=== PATIENT | female | born 1930 | race Hispanic/Latino ===

== ENCOUNTER 2018-10-14 02:06 | Inpatient (IN) | payer MEDICARE | END 2018-10-17 15:36 | LOC: EDH 02:06 → EDHIP 08:32 → 3AH 16:39 | DX: S01.01XA Laceration without foreign body of scalp, initial encounter (principal); K92.2 Gastrointestinal hemorrhage, unspecified; L03.115 Cellulitis of right lower limb; S09.90XA Unspecified injury of head, initial encounter; W19.XXXA Unspecified fall, initial encounter; Z91.81 History of falling; D64.9 Anemia, unspecified; F02.80 Dementia in other diseases classified elsewhere, unspecified severity, without behavioral disturbance, psychotic disturbance, mood disturbance, and anxiety; G30.9 Alzheimer's disease, unspecified ==

== ENCOUNTER 2018-10-22 17:20 | Inpatient (IN) | payer MEDICARE ==
[~2018-10-22] VITALS: Ht 149.9 cm; Wt 43.5 kg
[~2018-10-22 17:20] MED LIST: ACET-66 PO; ACET325T51 PO; AMLO5TAB5 PO; BACL20TA PO; CEFX2I IM; DONE5TAB33 PO; FLUT16H NASAL; FURO20TA6 PO; LEVO150T11 PO; LORA10TA7 PO; MEMA21CA PO; OSCAL PO; SILV45GE TP; SULF1TAB42 PO; VITAMIN PO
[2018-10-22 17:49] LABS: BASOPHILS % (AUTO) 0.2 % (0.0-5.0); EOSINOPHILS % (AUTO) 0.7 % (0.0-8.0); HEMATOCRIT 29.5 % (36-48); LYMPHOCYTES % (AUTO) 8.2 % (21.0-51.0); MEAN CORPUSCULAR HGB CONC 31.4 g/dL (32.0-36.0); MONOCYTES % (AUTO) 9.1 % (3.0-13.0); NEUTROPHILS % (AUTO) 81.8 % (40.0-77.0); PLATELET COUNT (AUTO) 338 K/uL (130-400); RED BLOOD CELL COUNT(AUTO) 3.32 MIL/uL (4.00-5.50); WHITE BLOOD COUNT (AUTO) 12.7 K/uL (4.8-10.8)
[2018-10-22 18:03] LABS: ALBUMIN 2.6 g/dL (3.5-5.0); BILIRUBIN,TOTAL 0.4 mg/dL (0.2-1.0); CREATININE 1.2 mg/dL (0.5-1.5)
[2018-10-22 18:19] LABS: POTASSIUM 2.8 mmol/L (3.5-5.1)
[2018-10-22 18:48] LABS: APPEARANCE,URINE Clear (CLEAR); BILIRUBIN,URINE Negative (NEGATIVE); COLOR,URINE Yellow (YELLOW); GLUCOSE, URINE (UA) Negative (NEGATIVE); KETONES,URINE Negative (NEGATIVE); LEUKOCYTE ESTERASE ,URINE Trace (NEGATIVE); NITRATE,URINE Negative (NEGATIVE); OCCULT BLOOD,URINE Trace (NEGATIVE); PROTEIN,URINE Negative (NEGATIVE); UROBILINOGEN,URINE 0.2 mg/dL (0.2-1.0)
[2018-10-22 19:23] LABS: BACTERIA,URINE Rare /HPF (None Seen)
[2018-10-22] MEDS ORDERED: MEROPENEM 1 GM VIAL ONE (21:59)
[2018-10-22] MEDS ORDERED: POTASSIUM CHLORIDE 20MEQ/100ML 100 ML IV ONE (23:31)
[2018-10-23] MEDS ORDERED: POTASSIUM CHLORIDE 20MEQ/100ML 100 ML IV ONE (04:05)
[2018-10-23] MEDS ORDERED: MEROPENEM 1 GM VIAL ONE ×2 (06:10→16:37)
[2018-10-23 06:20] LABS: BASOPHILS % (AUTO) 0.5 % (0.0-5.0); EOSINOPHILS % (AUTO) 3.6 % (0.0-8.0); HEMATOCRIT 26.7 % (36-48); MEAN CORPUSCULAR HEMOGLOBIN 28.2 pg (27.0-33.0); MEAN CORPUSCULAR HGB CONC 31.7 g/dL (32.0-36.0); MEAN CORPUSCULAR VOLUME 88.9 fL (79-99); MONOCYTES % (AUTO) 8.1 % (3.0-13.0); NEUTROPHILS % (AUTO) 73.8 % (40.0-77.0); PLATELET COUNT (AUTO) 338 K/uL (130-400); RED BLOOD CELL COUNT(AUTO) 3.01 MIL/uL (4.00-5.50); RED CELL DISTRIBUTION WIDTH 15.1 % (11.0-15.5); WHITE BLOOD COUNT (AUTO) 10.8 K/uL (4.8-10.8)
[2018-10-23 06:27] LABS: CREATININE 0.7 mg/dL (0.5-1.5); POTASSIUM 3.3 mmol/L (3.5-5.1)
[2018-10-23 06:35] LABS: AMPHET/METH SCREEN,URINE NEGATIVE (NEGATIVE); BARBITURATE SCREEN, URINE NEGATIVE (NEGATIVE); BENZODIAZEPINES SCREEN,URINE NEGATIVE (NEGATIVE); CANNABINOID SCREEN,URINE NEGATIVE (NEGATIVE); COCAINE SCREEN,URINE NEGATIVE (NEGATIVE); OPIATE SCREEN,URINE NEGATIVE (NEGATIVE); PHENCYCLIDINE SCREEN,URINE NEGATIVE (NEGATIVE)
[2018-10-23] MEDS ORDERED: POTASSIUM CHLORIDE 20 MEQ ERTAB PO ONE (09:36)
[2018-10-23] MEDS ORDERED: LACTULOSE 20 GM/30 ML UDCUP PO PRN (11:15)
[2018-10-23] MEDS ORDERED: ACETAMINOPHEN 325 MG TAB PO PRN ×2 (11:15→18:30)
[2018-10-23] MEDS ORDERED: DOCUSATE SODIUM 100 MG CAP PO PRN (11:15)
[2018-10-23] MEDS ORDERED: ACETAMINOPHEN 325 MG TAB ONE (14:54)
[2018-10-23 17:30] VITALS: BP 143/50
--- NOTE | 2018-10-23 17:30 | NUR ---
RECEIVED PT. FROM ED VIA STRETCHER. AAO TO NAME ONLY. REORIENTED TO PLACE, TIME AND SITUATION. DENIES ANY PAIN AT PRESENT TIME. DENIES ANY SOB. GUARDING RIGHT ARM/SHOULDER. COMPLETE ASSESSMENT DONE. CALL LIGHT WITHIN REACH. BED LOW, SIDE RAILS UP X3. ROOM DOOR OPEN, BLINDS OPEN, VISIBLE FROM NURSE'S STATION. Addendum: 10/23/18 at 1944 by SANDER SUÁREZ RN RN NO FAMILY MEMBERS ACCOMPANYING PT. UNABLE TO COMPLETE ADMISSION DATABASE.
--- NOTE | 2018-10-23 18:15 | NUR ---
RESTING IN BED WITH HOB AT 30 DEGREES, RESP.'S EVEN AND UNLABORED. DENIES ANY C/O CALL LIGHT WITHIN REACH.
[2018-10-23] MEDS: SODIUM CHLORIDE 0.9% 1000ML 1,000 ML IV SCH (18:30)
[2018-10-23] MEDS ORDERED: ZOLPIDEM TARTRATE 5 MG TAB PO PRN (18:30)
[2018-10-23] MEDS ORDERED: POTASSIUM CHLORIDE 20 MEQ ERTAB PO PRN (18:30)
[2018-10-23] MEDS ORDERED: GUAIFENESIN-DM 200/20 MG 10 ML PO PRN (18:30)
[2018-10-23] MEDS ORDERED: CLONIDINE HCL 0.1 MG TABLET PO PRN (18:30)
[2018-10-23] MEDS ORDERED: MAG HYDROX/AL HYDROX/SIMETH ES 30 ML SUSP UDCUP PO PRN (18:30)
[2018-10-23] MEDS ORDERED: NITROGLYCERIN 0.4 MG SL TAB SL PRN (18:30)
[2018-10-23] MEDS ORDERED: POTASSIUM CHLORIDE 10% ELIXIR 20 MEQ/15 ML UDCUP PO PRN (18:30)
[2018-10-23] MEDS ORDERED: ONDANSETRON HCL 4 MG/2 ML VIAL IVP PRN (18:30)
[2018-10-23] MEDS ORDERED: DiphenhydrAMINE HCL 50 MG/ML VIAL IVP PRN (18:30)
[2018-10-23] MEDS ORDERED: SODIUM CHLORIDE 0.9% 10 ML VIAL IVP PRN (18:30)
--- NOTE | 2018-10-23 18:30 | NUR ---
PCP PROVIDED PT. WITH DINNER SANDWICH TRAY.
[2018-10-23 19:23] VITALS: BP 132/59
[2018-10-23] MEDS: INSULIN R PO SSI SQ SCH (21:00)
[2018-10-23] MEDS: ACETAMINOPHEN 325 MG TAB PO PRN (21:56)
[2018-10-23] MEDS: DIPHENHYDRAMINE HCL 25 MG CAPSULE PO PRN (21:56)
[2018-10-23 23:29] VITALS: BP 111/62
[2018-10-24] MEDS: MEROPENEM 1 GM VIAL IVP SCH ×4 (01:19→23:30)
[2018-10-24 03:54] LABS: HEMATOCRIT 23.8 % (36-48); MEAN CORPUSCULAR HEMOGLOBIN 28.5 pg (27.0-33.0); MEAN CORPUSCULAR HGB CONC 32.6 g/dL (32.0-36.0); MEAN CORPUSCULAR VOLUME 87.7 fL (79-99); PLATELET COUNT (AUTO) 319 K/uL (130-400); RED BLOOD CELL COUNT(AUTO) 2.71 MIL/uL (4.00-5.50); RED CELL DISTRIBUTION WIDTH 14.9 % (11.0-15.5); WHITE BLOOD COUNT (AUTO) 13.9 K/uL (4.8-10.8)
--- NOTE | 2018-10-24 04:00 | NUR ---
Lab called to notify of low K+. Patient on electrolyte protocol. Will replace per protocol
[2018-10-24 04:13] VITALS: BP 157/89
[2018-10-24 04:19] LABS: CREATININE 0.7 mg/dL (0.5-1.5); THYROID STIMULATING HORMONE 1.26 uIU/mL (0.36-3.74)
[2018-10-24 04:30] LABS: POTASSIUM 2.8 mmol/L (3.5-5.1)
[2018-10-24] MEDS: LIDOCAINE HCL-MPF 1% 2ML VIAL IJ PRN ×2 (04:59→10:04)
[2018-10-24] MEDS: POTASSIUM CHLORIDE 20MEQ/100ML 100 ML IV PRN ×2 (04:59→10:04)
[2018-10-24] MEDS: INSULIN R PO SSI SQ SCH ×4 (06:20→21:00)
[2018-10-24 07:00] VITALS: BP 140/89
[2018-10-24] MEDS: SODIUM CHLORIDE 0.9% 1000ML 1,000 ML IV SCH ×2 (07:50→16:28)
[2018-10-24] MEDS: ACETAMINOPHEN-CODEINE 300/30MG TAB PO PRN (10:07)
[2018-10-24 11:00] VITALS: BP 124/72
--- NOTE | 2018-10-24 12:28 | NUR ---
CALLED DR. IYER AND SPOKE WITH HIM DIRECTLY TO REMIND OF CONSULT WITH PT. STATES WILL BE IN TO SEE PT. IN THE NEXT 30-40 MINUTES.
--- NOTE | 2018-10-24 15:10 | NUR ---
Nutrition Intervention: Nutrition consult due to trigger. Pt. admitted with Dx of AMS. Pt. on 75gm CCD diet. As per pt's gdfrkzr-hb-yfi, pt. eating 50% of her meals; no chewing or swallowing difficulties. Xbxxvnz-tb-rum stated pt. has no Hx of DM but is on Diabetic diet because pt's BG levels tend to be slightly elevated at times. Spoke with pt's ydoxzdk-xf-wve regarding nutritional supplementation and he agreed to let patient try. Labs reviewed(Alb 2.6, BG 117). LBM: 10/24/18. SR-15, loose. BMI: 19.8, underweight for age. Recommendations: 1) Continue current diet. 2) Rec. Ensure supp. BID with B'fast and dinner meals. 3) Continue to monitor pt's nutritional status. 4) Consult RD as nutrition concerns arise. Addendum: 10/24/18 at [address] Amended: Links added.
--- NOTE | 2018-10-24 16:30 | NUR ---
DR. IYER IN ROOM WITH PT. DR. IYER STATES HE HAS SCHEDULED PROCEDURE WITH OR.
[2018-10-24 16:33] VITALS: BP 145/81
[2018-10-24 19:47] VITALS: BP 142/65
--- NOTE | 2018-10-24 21:00 | NUR ---
Early Childhood Director was called and notified unable to get hold of pt. family/POA to obtain consent.
[2018-10-24 23:25] VITALS: BP 147/57
--- NOTE | 2018-10-25 | NUR ---
Kept pt. NPO at this time.
[2018-10-25 03:43] LABS: HEMATOCRIT 26.4 % (36-48); MEAN CORPUSCULAR HEMOGLOBIN 27.9 pg (27.0-33.0); MEAN CORPUSCULAR HGB CONC 31.9 g/dL (32.0-36.0); MEAN CORPUSCULAR VOLUME 87.4 fL (79-99); PLATELET COUNT (AUTO) 358 K/uL (130-400); RED BLOOD CELL COUNT(AUTO) 3.02 MIL/uL (4.00-5.50); WHITE BLOOD COUNT (AUTO) 26.6 K/uL (4.8-10.8)
[2018-10-25 03:58] VITALS: BP 128/63
[2018-10-25 04:03] LABS: CREATININE 0.7 mg/dL (0.5-1.5); POTASSIUM 3.1 mmol/L (3.5-5.1)
[2018-10-25] MEDS: INSULIN R PO SSI SQ SCH ×4 (05:51→21:00)
[2018-10-25] MEDS: POTASSIUM CHLORIDE 20MEQ/100ML 100 ML IV PRN ×2 (05:55→16:47)
[2018-10-25 07:00] VITALS: BP 122/52
[2018-10-25] MEDS ORDERED: LIDOCAINE PF 2% 5ML ABBOJECT ONE (07:10)
[2018-10-25] MEDS ORDERED: PROPOFOL 10 MG/ML 20ML VIAL IV ONE (07:11)
[2018-10-25] MEDS ORDERED: MIDAZOLAM HCL 1 MG/ML 2ML VIAL ONE (07:11)
[2018-10-25] MEDS ORDERED: ONDANSETRON HCL 4 MG/2 ML VIAL ONE (07:11)
[2018-10-25] MEDS ORDERED: DEXAMETHASONE SOD PHOSPHATE 10MG/ML 1ML VIAL ONE (07:11)
[2018-10-25] MEDS ORDERED: FENTANYL CITRATE PF 50 MCG/1 ML 2ML VIAL ONE (07:12)
[2018-10-25] MEDS ORDERED: EPINEPHRINE 1 MG/ML AMPULE ONE (07:14)
--- NOTE | 2018-10-25 07:40 | NUR ---
Received call from Dr. Traore,he said to cancel surgery and reschedule it tomorrow and obtain medical clearance.
--- NOTE | 2018-10-25 07:49 | NUR ---
Pt. removed peterson catheter out,catheter tip intact ,it was observed by [employer] RECEIVER's.Pt. refused catheter to be inserted back.Incoming shift informed.
--- NOTE | 2018-10-25 07:57 | NUR ---
Dr. Levine was called and notified that surgery was cancelled and it is rescheduled for tomorrow and that pt. needs medical clearance as per Dr. Traore..He said to get a cardiac clearance for the pt. prior to surgery.I also notified him that pt. pulled out her peterson catheter and that she refused to have a new cath inserted.No new order received.
[2018-10-25] MEDS: MEROPENEM 1 GM VIAL IVP SCH ×2 (08:15→16:46)
[2018-10-25 11:00] VITALS: BP 123/67
[2018-10-25] MEDS: DOXYCYCLINE 100MG+NS 250ML 250 ML IV SCH ×2 (11:44→19:55)
--- NOTE | 2018-10-25 15:30 | NUR ---
DC PLAN VISITED WITH PATIENT AND FAMILY. PATIENT LISA IS IN THE HOSPITAL AT THIS TIME GETTING CHEMO TREATMENT UNABLE TO REACH. LISA SPOUSE AT BEDSIDE SAYS HE HAS SIGNED IN THE PAST. TRIED OTHER FAMILY PHONE NUMBER NO ANSWER. PER MIKA ROSE SHOULD BE OUT OF HOSPITAL IN THE NEXT DAY OR TWO AND WILL TRY TO SEE IF WELL ENOUGH TO COME TO HOSPITAL. AT THIS TIME JOSÉ LUIS SIGNED BY MIKA ROSE TO BEGIN SEEING ABOUT SNF BENEFITS. 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 BUT SAYS THEY NO LONGER WANT HER THERE TO MANY CONCERNS. WILL NEED MD ORDER. Addendum: 10/25/18 at 1534 by CONNIE ALVAREZ RN CM Amended: Links added.
[2018-10-25 16:00] VITALS: BP 131/54
--- NOTE | 2018-10-25 19:18 | NUR ---
Received bedside report,pt. with ongoing potassium coverage 2nd dose infusing.Pt. is to be on NPO postmidnight pt. is cleared for surgery tomorrow.Consent obtained per dayshift.
[2018-10-25 19:37] VITALS: BP 111/53
[2018-10-25 23:31] VITALS: BP 143/69
[2018-10-26] VITALS (23 sets, daily range): BP systolic 8–132; BP diastolic 34–79
--- NOTE | 2018-10-26 | NUR ---
Pt. kept NPO at this time.
[2018-10-26] MEDS: MEROPENEM 1 GM VIAL IVP SCH ×3 (00:55→21:51)
[2018-10-26] MEDS: INSULIN R PO SSI SQ SCH ×4 (05:34→21:00)
[2018-10-26 06:13] LABS: HEMATOCRIT 28.1 % (36-48); MEAN CORPUSCULAR HEMOGLOBIN 27.9 pg (27.0-33.0); MEAN CORPUSCULAR HGB CONC 32.1 g/dL (32.0-36.0); MEAN CORPUSCULAR VOLUME 86.9 fL (79-99); PLATELET COUNT (AUTO) 384 K/uL (130-400); RED BLOOD CELL COUNT(AUTO) 3.23 MIL/uL (4.00-5.50); RED CELL DISTRIBUTION WIDTH 14.9 % (11.0-15.5)
[2018-10-26 06:22] LABS: CREATININE 0.7 mg/dL (0.5-1.5); POTASSIUM 3.1 mmol/L (3.5-5.1)
[2018-10-26] MEDS: POTASSIUM CHLORIDE 20MEQ/100ML 100 ML IV PRN (06:53)
--- NOTE | 2018-10-26 07:18 | NUR ---
STATUS PT TAKEN TO OR TO HAVE CLOSE REDUCTION OF RT SHOULDER. TELE JEREMY REMOVED. FAMILY TO WAIT IN PT'S RM.
--- NOTE | 2018-10-26 07:20 | NUR ---
PT. REMAINED NPO AND STABLE.SURGICAL STAFF HERE AND REPORT GIVEN .TO STAFF HANDED OVER ANTIBIOTIC.INFORMED THAT FAMILY WILL BE HERE TODAY SO HE CAN SIGN CONSENT IF NEEDED TO SIGN ON ANESTHESIA SECTION.
[2018-10-26] MEDS ORDERED: EPHEDRINE SULFATE 50 MG/ML AMPULE ONE (08:25)
[2018-10-26] MEDS: DOXYCYCLINE 100MG+NS 250ML 250 ML IV SCH ×2 (09:24→21:08)
[2018-10-26] MEDS ORDERED: NOREPINEPHRINE BITARTRATE 1 MG/1 ML ML IV ONE (10:32)
[2018-10-26] MEDS: ACETAMINOPHEN-CODEINE 300/30MG TAB PO PRN ×2 (17:14→23:35)
[2018-10-26] MEDS ORDERED: VANC750P8 IV (19:37)
[2018-10-26] MEDS ORDERED: DIPH25TA20 PO (19:37)
[2018-10-26] MEDS ORDERED: FAMO20TA8 PO (19:37)
[2018-10-27 03:00] VITALS: BP 125/56
[2018-10-27 05:05] LABS: HEMATOCRIT 25.4 % (36-48); MEAN CORPUSCULAR HEMOGLOBIN 27.5 pg (27.0-33.0); MEAN CORPUSCULAR HGB CONC 31.2 g/dL (32.0-36.0); MEAN CORPUSCULAR VOLUME 88.1 fL (79-99); PLATELET COUNT (AUTO) 386 K/uL (130-400); RED BLOOD CELL COUNT(AUTO) 2.88 MIL/uL (4.00-5.50); RED CELL DISTRIBUTION WIDTH 15.3 % (11.0-15.5); WHITE BLOOD COUNT (AUTO) 20.7 K/uL (4.8-10.8)
[2018-10-27 05:18] LABS: POTASSIUM 3.9 mmol/L (3.5-5.1)
[2018-10-27] MEDS: MEROPENEM 1 GM VIAL IVP SCH ×3 (05:22→23:00)
[2018-10-27] MEDS: INSULIN R PO SSI SQ SCH ×4 (07:30→21:00)
[2018-10-27 08:27] VITALS: BP 118/75
[2018-10-27] MEDS: DOXYCYCLINE 100MG+NS 250ML 250 ML IV SCH ×2 (09:37→20:57)
[2018-10-27 11:56] VITALS: BP 155/77
[2018-10-27 15:56] VITALS: BP 155/77
--- NOTE | 2018-10-27 16:09 | NUR ---
DC PLAN SPOKE TO DR. GLORIA REGARDING DC PLAN. FAMILY WANTS PATIENT TO GO TO [facility]. SAID [place] TO SEND REFERRAL BUT NOT READY TO DC TODAY. SAID FABBY. JOSÉ LUIS ALREADY SIGNED INFO FAXED AND EMAILED. Addendum: 10/27/18 at 1610 by CONNIE ALVAREZ RN CM Amended: Links added.
[2018-10-27 19:56] VITALS: BP 123/75
[2018-10-27 23:20] VITALS: BP 118/66
[2018-10-28] MEDS: DIPHENHYDRAMINE HCL 25 MG CAPSULE PO PRN (01:31)
[2018-10-28] MEDS: ACETAMINOPHEN-CODEINE 300/30MG TAB PO PRN ×2 (01:31→23:18)
[2018-10-28 04:05] LABS: HEMATOCRIT 25.2 % (36-48); MEAN CORPUSCULAR HEMOGLOBIN 28.4 pg (27.0-33.0); MEAN CORPUSCULAR HGB CONC 32.4 g/dL (32.0-36.0); MEAN CORPUSCULAR VOLUME 87.5 fL (79-99); PLATELET COUNT (AUTO) 410 K/uL (130-400); RED BLOOD CELL COUNT(AUTO) 2.88 MIL/uL (4.00-5.50); RED CELL DISTRIBUTION WIDTH 15.4 % (11.0-15.5); WHITE BLOOD COUNT (AUTO) 13.8 K/uL (4.8-10.8)
[2018-10-28 04:13] VITALS: BP 116/66
[2018-10-28] MEDS: MEROPENEM 1 GM VIAL IVP SCH ×3 (05:44→22:22)
[2018-10-28] MEDS: INSULIN R PO SSI SQ SCH ×4 (07:17→21:00)
[2018-10-28 07:54] VITALS: BP 158/55
--- NOTE | 2018-10-28 08:00 | NUR ---
ASSESSMENT PT IS AWAKE AND ALERT DENIES CP DENIES SOB DENIES NV NO COMPLAINTS. NOTED RIGHT SHOULDER IMMOBILZER IN PLACE, EATING BREAKFAST WITH MELISA PCP ASSISTING. BROTHER IS AT BEDSIDE.
--- NOTE | 2018-10-28 08:30 | NUR ---
DR JUANI CARRERO SAW PATIENT ORDERS RECEIVED.
[2018-10-28] MEDS: DOXYCYCLINE 100MG+NS 250ML 250 ML IV SCH ×2 (08:46→20:36)
[2018-10-28 09:10] LABS: INR 1.02 (0.85-1.15); PROTHROMBIN TIME 10.7 SEC (9.6-11.6)
[2018-10-28 11:48] VITALS: BP 153/73
--- NOTE | 2018-10-28 15:04 | NUR ---
2:30- PICC LINE PLACEMENT. WILL ATTEMPT PT EVALUATION TOMORROW.JOSE FARAH WAS AWARE OF PATIENT'S CURRENT SITUATION. Addendum: 10/28/18 at 1507 by LUCIE JAIME, PT PT Amended: Links added.
--- NOTE | 2018-10-28 15:52 | NUR ---
[facility]ARA EDGAR CM DIRECTOR SPOKE TO [facility] REP SAID THAT THEY WILL NOT ACCEPT PATIENT DUE TO HISTORY OF DEMENTIA/ALZHEIMERS. DO NOT HAVE WANDER GUARD. SPOKE TO FAMILY EXPLAINED. SAID TO TRY [facility]AMA IN [place]. THEY WANT PATIENT CLOSER SINCE SISTER IS HAVING CHEMO NOW AND IS TO WEAK TO GO [place] TO SEE PATIENT. SPOKE TO KATARZYNA SENT INFO VIA EMAIL. REP HERE TO VISIT WITH PATIENT. Addendum: 10/28/18 at 1557 by CONNIE ALVAREZ RN CM Amended: Links added.
[2018-10-28 16:00] VITALS: BP 140/75
[2018-10-28] MEDS: ACETAMINOPHEN 325 MG TAB PO PRN (16:05)
[2018-10-28] MEDS: LACTULOSE 20 GM/30 ML UDCUP PO PRN (17:46)
--- NOTE | 2018-10-28 17:48 | NUR ---
PATIENT STATES CONSTIPATION STATES SHE NEEDS TO HAVE BM BUT IS UNABLE TO. LACTULOSE GIVEN PO GIVEN.
[2018-10-28 20:11] VITALS: BP 127/60
[2018-10-29] VITALS: BP 141/77
[2018-10-29 03:39] LABS: HEMATOCRIT 28.5 % (36-48); MEAN CORPUSCULAR HEMOGLOBIN 27.9 pg (27.0-33.0); MEAN CORPUSCULAR VOLUME 87.4 fL (79-99); NUCLEATED RED BLOOD CELLS 0.1 % (0.0-0.19); PLATELET COUNT (AUTO) 501 K/uL (130-400); RED BLOOD CELL COUNT(AUTO) 3.26 MIL/uL (4.00-5.50); RED CELL DISTRIBUTION WIDTH 15.3 % (11.0-15.5); WHITE BLOOD COUNT (AUTO) 13.1 K/uL (4.8-10.8)
[2018-10-29 04:00] VITALS: BP 165/78
[2018-10-29] MEDS: MEROPENEM 1 GM VIAL IVP SCH ×2 (05:20→14:45)
[2018-10-29] MEDS: INSULIN R PO SSI SQ SCH ×3 (06:02→16:19)
[2018-10-29 07:34] VITALS: BP 154/93
[2018-10-29] MEDS: DOXYCYCLINE 100MG+NS 250ML 250 ML IV SCH (07:45)
[2018-10-29 11:14] VITALS: BP 109/48
[2018-10-29] MEDS: LACTULOSE 20 GM/30 ML UDCUP PO PRN (11:31)
--- NOTE | 2018-10-29 14:30 | NUR ---
RD Follow-up Note Patient with Poor PO on Heart Healthy diet. Ensure not previously received as per patient significant other. Rec to add Ensure BID; Nurse and Significant other agree. No report of N/V. Patient LBM 10/25/18; Rec to add stool softener or Laxative secondary to constipation. Patient monitored labs: Glu 97, BUN 29, GFR 56, Ca 8.4. RD to continue to monitor. Please notify RD as nutritional concerns arise. Thank you. Addendum: 10/29/18 at [address] Amended: Links added.
[2018-10-29 16:14] VITALS: BP 148/77
--- NOTE | 2018-10-29 16:52 | NUR ---
DC PLAN PATIENT FAMILY THIS MORNING REQUESTED TO SEND INFO TO [facility]. SENT INFO REP HERE. TOLD [facility] THAT FAMILY THINKING ABOUT GOING TO [facility]. THEY CALLED HIM AND TOLD HIM PATIENT ACCEPTED. FAMILY WENT TO [facility] TO SIGN PAPERWORK. REP FROM [facility] RETURNED AND HAD NOT GIVEN ACCEPTANCE. SAID PATIENT ACCEPTED GOT FAMILY ON PHONE TO CHANGE FACILITY. SPOKE TO FAMILY ON PHONE SAID TO TELL REP FROM [facility] SORRY BUT THEY HAD ALREADY SIGNED AT [facility] AND THEY WERE READY FOR HER. ROOM NUMBER [id number]. LET REP KNOW AND NURSE TO CALL REPORT. Addendum: 10/29/18 at 1654 by CONNIE ALVAREZ RN CM Amended: Links added.
--- NOTE | 2018-10-29 17:15 | NUR ---
Spoke to Dillan Pat. . Okay to discharge patient to [facility]. Report given to Nurse at [facility].
== END 2018-10-29 19:42 | DRG 563 ==
LOC: EDH 17:20 → EDHIP 20:00 → 2DH 10-23 17:43
PROVIDERS: ADMIT Family Medicine; ATTEND Family Medicine
PROC: 0PSCXZZ Reposition Right Humeral Head, External Approach (ICD-10-PCS; principal; 2018-10-26 08:00)
PROC: 02HV33Z Insertion of Infusion Device into Superior Vena Cava, Percutaneous Approach (ICD-10-PCS; 2018-10-28)
DX: S43.014A Anterior dislocation of right humerus, initial encounter (principal); F02.80 Dementia in other diseases classified elsewhere, unspecified severity, without behavioral disturbance, psychotic disturbance, mood disturbance, and anxiety; G30.9 Alzheimer's disease, unspecified; E03.9 Hypothyroidism, unspecified; E87.6 Hypokalemia; I10 Essential (primary) hypertension; D72.829 Elevated white blood cell count, unspecified; X58.XXXA Exposure to other specified factors, initial encounter; Z87.440 Personal history of urinary (tract) infections; Z88.0 Allergy status to penicillin; Y93.89 Activity, other specified; Y92.89 Other specified places as the place of occurrence of the external cause; Y99.8 Other external cause status; Z91.81 History of falling
CPT/HCPCS: 36415; 70450; 71045; 74176; 76000; 80048; 80053; 80305; 81001; 82948; 83605; 83735; 84132; 84443; 85025; 85027; 85610; 87040; 87088; 97039; A4218; A4606; A6250; C1894; G0378; J0171; J1100; J1815; J2001; J2185; J2250; J2405; J2704; J3010; J3480; J3490; J7030; Q0163